=== PATIENT | female | born 1980 | race Caucasian/White ===

== ENCOUNTER 2017-08-01 16:02 | Inpatient (IN) | payer BC ==
[2017-08-01] MEDS ORDERED: Sodium Chloride 0.9% 10 ML Syringe FLUSH PRN (18:00)
[2017-08-01] MEDS: cefOXitin 2 GM in Premix Bag 1 BAG IV SCH (18:23)
[2017-08-01] MEDS: Doxycycline 100 MG in Sodium Chloride 0.9% 100 ML IV SCH (19:01)
[2017-08-01] MEDS: Ibuprofen 600 MG Tab PO PRN (19:55)
[2017-08-02] MEDS: cefOXitin 2 GM in Premix Bag 1 BAG IV SCH ×4 (00:21→18:26)
[2017-08-02] MEDS: Ibuprofen 600 MG Tab PO PRN ×3 (04:01→19:11)
[2017-08-02] MEDS: Doxycycline 100 MG in Sodium Chloride 0.9% 100 ML IV SCH ×2 (06:51→19:05)
[2017-08-03] MEDS: cefOXitin 2 GM in Premix Bag 1 BAG IV SCH ×4 (00:09→18:23)
[2017-08-03] MEDS: Doxycycline 100 MG in Sodium Chloride 0.9% 100 ML IV SCH ×2 (06:39→18:58)
[2017-08-03] MEDS: Ibuprofen 600 MG Tab PO PRN (06:43)
[2017-08-03] MEDS: Sodium Chloride 0.9% 500 ML ONE ×2 (07:18→19:01)
[2017-08-03] MEDS ORDERED: Sodium Chloride 0.9% 500 ML IV ONE (08:00)
--- NOTE | 2017-08-03 09:30 | PCM.PN ---
- General Info Date of Service: 08/03/17 Functional Status: Reports: Pain Controlled, Tolerating Diet - Review of Systems General: Reports: No Symptoms. Denies: Fever, Chills HEENT: Reports: No Symptoms Pulmonary: Reports: No Symptoms Cardiovascular: Reports: No Symptoms Gastrointestinal: Reports: No Symptoms Genitourinary: Reports: No Symptoms Musculoskeletal: Reports: No Symptoms Skin: Reports: No Symptoms Neurological: Reports: No Symptoms Psychiatric: Reports: No Symptoms - Patient Data Vitals - Most Recent: Last Vital Signs Temp 36.7 C 08/03/17 07:24 Pulse 64 08/03/17 07:24 Resp 18 08/03/17 07:24 BP 104/59 L 08/03/17 07:24 Pulse Ox 99 08/03/17 07:24 Weight - Most Recent: 62.142 kg I&O - Last 24 Hours: Intake & Output 08/02/17 08/03/17 08/03/17 22:59 06:59 14:59 Intake Total 900 Balance 900 Med Orders - Current: Current Medications Cefoxitin Sodium 2 gm/ Premix 50 mls @ 100 mls/hr IV Q6H [facility] Last Admin: 08/03/17 06:03 Dose: 100 mls/hr Doxycycline Hyclate 100 mg/ (Sodium Chloride) 100 mls @ 100 mls/hr IV Q12H [facility] Last Admin: 08/03/17 06:39 Dose: 100 mls/hr Ibuprofen (Motrin) 600 mg PO Q6H PRN PRN Reason: Pain Last Admin: 08/03/17 06:43 Dose: 600 mg Sodium Chloride (Saline Flush) 10 ml FLUSH ASDIRECTED PRN PRN Reason: Keep Vein Open Discontinued Medications Sodium Chloride (Normal Saline) Confirm Administered Dose 500 mls @ as directed .ROUTE .STK-MED ONE Stop: 08/03/17 07:10 - Exam General: Alert, Oriented HEENT: Pupils Equal, Pupils Reactive, EOMI, Mucous Membr. Moist/[place] Neck: Supple Lungs: Clear to Auscultation, Normal Respiratory Effort Cardiovascular: Regular Rate, Regular Rhythm GI/Abdominal Exam: Normal Bowel Sounds, Soft, Non-Tender, No Organomegaly Back Exam: Normal Inspection, Full Range of Motion Extremities: Normal Inspection, Normal Range of Motion, Non-Tender, No Pedal Edema, Normal Capillary Refill Skin: Warm, Dry, Intact Wound/Incisions: Healing Well Neurological: No New Focal Deficit Psy/Mental Status: Alert, Normal Affect, Normal Mood - Problem List Review Problem List Initiated/Reviewed/Updated: Yes - My Orders Last 24 Hours: My Active Orders 08/04/17 05:11 CBC WITH AUTO DIFF [HEME] AM - Assessment Assessment:: Doing well. Pain controlled. Improving Afebrile. - Plan Plan:: Hospital day two of antibiotics for TOA. Doing well.
[2017-08-03] MEDS ORDERED: Sodium Chloride 0.9% 500 ML ONE (18:52)
[2017-08-04] MEDS: cefOXitin 2 GM in Premix Bag 1 BAG IV SCH ×4 (00:41→18:16)
[2017-08-04] MEDS: Doxycycline 100 MG in Sodium Chloride 0.9% 100 ML IV SCH ×2 (06:51→18:29)
[2017-08-04] MEDS: Ibuprofen 600 MG Tab PO PRN (06:56)
--- NOTE | 2017-08-04 09:40 | PCM.DCSUM1 ---
Discharge Summary - Discharge Data Discharge Date: 08/04/17 Discharge Disposition: Home, Self-Care 01 Condition: Good - Patient Instructions Diet: Regular Diet as Tolerated Diet, Other: push fluids Activity: No Strenuous Activities Activity, Other: pelvic rest Driving: May Drive Today Showering/Bathing: September Shower Notify Provider of: Fever, Increased Pain, Swelling and Redness, Drainage, Nausea and/or Vomiting - Discharge Plan Referrals: Ifrah Coon MD [Physician] - (1 week) - Discharge Summary/Plan Comment DC Time >30 min.: No - General Info Date of Service: 08/04/17 - Review of Systems General: Reports: No Symptoms HEENT: Reports: No Symptoms Pulmonary: Reports: No Symptoms Cardiovascular: Reports: No Symptoms Gastrointestinal: Reports: No Symptoms Genitourinary: Reports: No Symptoms Musculoskeletal: Reports: No Symptoms Skin: Reports: No Symptoms Neurological: Reports: No Symptoms Psychiatric: Reports: No Symptoms - Patient Data Vitals - Most Recent: Last Vital Signs Temp 36.7 C 08/04/17 04:00 Pulse 75 08/03/17 19:56 Resp 16 08/03/17 19:56 BP 129/79 08/03/17 19:56 Pulse Ox 99 08/03/17 19:56 Weight - Most Recent: 62.142 kg I&O - Last 24 hours: Intake & Output 08/03/17 08/04/17 08/04/17 22:59 06:59 14:59 Intake Total 340 100 Balance 340 100 Lab Results - Last 24 hrs: Laboratory Results - last 24 hr 08/03/17 08/04/17 Range/Units 10:00 06:49 WBC 10.57 H 10.64 H (3.98-10.04) K/mm3 RBC 4.64 4.46 (3.98-5.22) M/mm3 Hgb 13.7 13.1 (11.2-15.7) gm/L Hct 41.6 39.8 (34.1-44.9) % MCV 89.7 89.2 (79.4-94.8) fl MCH 29.5 29.4 (25.6-32.2) pg MCHC 32.9 32.9 (32.2-35.5) g/dl RDW Std Deviation 40.2 40.0 (36.4-46.3) fL Plt Count 488 H 464 H (182-369) K/mm3 MPV 9.5 9.5 (9.4-12.3) fl Neut % (Auto) 54.4 49.4 (34.0-71.1) % Lymph % (Auto) 34.8 38.1 (19.3-51.7) % [place] % (Auto) 6.2 7.8 (4.7-12.5) % Eos % (Auto) 4.1 3.9 (0.7-5.8) Baso % (Auto) 0.4 0.6 (0.1-1.2) % Neut # (Auto) 5.75 5.26 (1.56-6.13) K/mm3 Lymph # (Auto) 3.68 4.05 H (1.18-3.74) K/mm3 [place] # (Auto) 0.66 H 0.83 H (0.24-0.36) K/mm3 Eos # (Auto) 0.43 H 0.42 H (0.04-0.36) K/mm3 Baso # (Auto) 0.04 0.06 (0.01-0.08) K/mm3 Med Orders - Current: Current Medications Cefoxitin Sodium 2 gm/ Premix 50 mls @ 100 mls/hr IV Q6H [facility] Last Admin: 08/04/17 06:26 Dose: 100 mls/hr Doxycycline Hyclate 100 mg/ (Sodium Chloride) 100 mls @ 100 mls/hr IV Q12H [facility] Last Admin: 08/04/17 06:51 Dose: 100 mls/hr Ibuprofen (Motrin) 600 mg PO Q6H PRN PRN Reason: Pain Last Admin: 08/04/17 06:56 Dose: 600 mg Sodium Chloride (Saline Flush) 10 ml FLUSH ASDIRECTED PRN PRN Reason: Keep Vein Open Discontinued Medications Sodium Chloride (Normal Saline) Confirm Administered Dose 500 mls @ as directed .ROUTE .STK-MED ONE Stop: 08/03/17 07:10 Last Admin: 08/03/17 19:01 Dose: 100 mls/hr Sodium Chloride (Normal Saline) 500 mls @ 100 mls/hr IV ASDIRECTED ONE Stop: 08/03/17 12:59 Last Admin: 08/03/17 19:01 Dose: 100 mls/hr Sodium Chloride (Normal Saline) Confirm Administered Dose 500 mls @ as directed .ROUTE .STK-MED ONE Stop: 08/03/17 18:53 Last Admin: 08/03/17 19:00 Dose: 100 mls/hr - Exam General: Reports: Alert, Oriented HEENT: Reports: Pupils Equal, Pupils Reactive, EOMI, Mucous Membr. Moist/[place] Neck: Reports: Supple Lungs: Reports: Clear to Auscultation, Normal Respiratory Effort Cardiovascular: Reports: Regular Rate, Regular Rhythm GI/Abdominal Exam: Normal Bowel Sounds, Soft, Non-Tender, No Organomegaly, No Distention, No Abnormal Bruit, No Mass, Pelvis Stable Rectal (Female) Exam: Normal Exam, Normal Rectal Tone Back Exam: Reports: Normal Inspection, Full Range of Motion Extremities: Normal Inspection, Normal Range of Motion, Non-Tender, No Pedal Edema, Normal Capillary Refill Skin: Reports: Warm, Dry, Intact Wound/Incisions: Reports: Healing Well Neurological: Reports: No New Focal Deficit Psy/Mental Status: Reports: Alert, Normal Affect, Normal Mood
[2017-08-04] MEDS ORDERED: Doxycycline 100 MG Cap PO STA (18:36)
[2017-08-04] MEDS ORDERED: cefTRIAXone 250 MG Vial IM ONE (19:00)
== END 2017-08-04 18:50 | disposition home or self-care (01) | DRG 531 ==
LOC: JD.OB 16:44
PROVIDERS: ADMIT Obstetrics & Gynecology; ATTEND Obstetrics & Gynecology
DX: N70.93 Salpingitis and oophoritis, unspecified (principal); J30.2 Other seasonal allergic rhinitis
CPT/HCPCS: 36415; 85025; A9270-GY; J0694; J0696; J7030; J7040

== ENCOUNTER 2019-01-15 19:46 | Emergency (ER) | payer BC, OTHER ==
[2019-01-15] MEDS ORDERED: Labetalol 100 MG/20 ML MDV IVPUSH ONE (20:41)
[2019-01-15] MEDS ORDERED: Sodium Chloride 0.9% 1,000 ML IV SCH (20:45)
--- NOTE | 2019-01-15 21:12 | EDM.PDOC ---
ED HPI GENERAL MEDICAL PROBLEM - General Chief Complaint: Cardiovascular Problem Stated Complaint: high blood presure Time Seen by Provider: 01/15/19 20:25 Source of Information: Reports: Patient, Family History Limitations: Reports: Intoxication - History of Present Illness INITIAL COMMENTS - FREE TEXT/NARRATIVE: This is a 38-year-old female. She has been having periodic headaches for more than a year and over the last 6-8 months chest tightness and left arm numbness at times. She says it usually occurs when she gets stressed out and if she'll just go to sleep and relax most of the symptoms go away. She says a someone massages her neck that usually makes her headaches go away. Apparently she tells me she gets stressed out easily. Yesterday evening she was feeling very tired she felt like the room was spinning it was in the evening so she lay down she noted that her left arm and hand felt numb was having chest pressure as well as a headache in the back of her head and on the sides of her head. She had a difficult time falling asleep but once she fell asleep she slept all night and when she awoke she did not have the symptoms. Then today he had several episodes of spinning or dizziness. Then this evening she went to a pharmacy and they checked her blood pressure and it was 159/98. At that time she was having some numbness in her left arm and pressure in her chest and also a posterior headache and it has lasted until she got to the ER. When she arrived her blood pressure was 170/105. She says she still has the chest pressure but her left arm is not hurting she still has a mild posterior headache. She says she has a family history of heart disease including an aunt on heart medications and a mother on blood pressure medicines. the patient also indicates that she has been easily stressed lately and that at a drop of a hat she'll cry and she gets very angry at times. Left Arm Pain Score (Numeric/FACES): 4 Chest Pain Score (Numeric/FACES): 4 - Related Data Allergies Allergy/AdvReac Type Severity Reaction Status Date / Time No Known Allergies Allergy Verified 07/27/17 08:44 Home Meds: Home Meds LORazepam [Ativan] 0.5 mg PO Q6H PRN #20 tablet 01/15/19 [Rx] Metoprolol Succinate 50 mg PO QAM #30 tab.er.24h 01/15/19 [Rx] Past Medical History HEENT History: Reports: Other (See Below) Other HEENT History: glasses PROCESS SPECIALIST History: Reports: Other (See Below) Other PROCESS SPECIALIST History: ovarian cyst - Past Surgical History GI Surgical History: Reports: Appendectomy Social & Family History - Family History Family Medical History: Noncontributory - Tobacco Use Smoking Status *Q: Current Every Day Smoker Years of Tobacco use: 3 Packs/Tins Daily: 0.3 - Caffeine Use Caffeine Use: Reports: Coffee, Soda - Recreational Drug Use Recreational Drug Use: No ED ROS GENERAL - Review of Systems Review Of Systems: See Below Constitutional: Denies: Fever, Chills HEENT: Reports: No Symptoms Respiratory: Denies: Shortness of Breath, Wheezing, Cough Cardiovascular: Reports: Chest Pain, Other (Vertigo). Denies: Edema Endocrine: Reports: No Symptoms GI/Abdominal: Reports: No Symptoms : Reports: No Symptoms Musculoskeletal: Denies: Neck Pain, Back Pain Skin: Reports: No Symptoms Neurological: Reports: Dizziness, Headache. Denies: Syncope, Trouble Speaking, Difficulty Walking Psychiatric: Reports: Anxiety, Depression Hematologic/Lymphatic: Reports: No Symptoms ED EXAM, GENERAL - Physical Exam Exam: See Below Exam Limited By: No Limitations General Appearance: Alert, WD/WN, No Apparent Distress Eye Exam: Bilateral Eye: Normal Inspection Ears: Normal External Exam, Normal Canal, Normal TMs Nose: Normal Inspection Throat/Mouth: Normal Inspection, Normal Lips, Normal Voice, No Airway Compromise Head: Atraumatic, Normocephalic Neck: Supple, Other (She is tender in the posterior neck and paraspinal muscle and when I push on the muscles there she says it feels better) Respiratory/Chest: No Respiratory Distress, Lungs Clear, Normal Breath Sounds Cardiovascular: Regular Rate, Rhythm, No Murmur GI/Abdominal: Soft, Non-Tender Back Exam: Full Range of Motion Extremities: Normal Inspection, Normal Range of Motion Neurological: Alert, Oriented, Normal Cognition, No Motor/Sensory Deficits Psychiatric: Flat Affect Skin Exam: Warm, Dry EKG INTERPRETATION EKG Date: 01/15/19 Time: 20:10 EKG Interpretation Comments: Normal sinus rhythm no acute ST or T-wave changes and no ischemia noted. Course - Vital Signs Last Recorded V/S: Last Vital Signs Temp 97.9 F 01/15/19 19:53 Pulse 92 01/15/19 19:53 Resp 20 01/15/19 19:53 BP 170/105 H 01/15/19 19:53 Pulse Ox 98 01/15/19 19:53 - Orders/Labs/Meds Orders: Active Orders 24 hr Category Date Time Status EKG Documentation Completion [RC] ASDIRECTED Care 01/15/19 20:04 Active Chest 2V [CR] Stat Exams 01/15/19 20:40 Taken Head wo Cont [CT] Stat Exams 01/15/19 20:41 Taken Sodium Chloride 0.9% [Normal Saline] 1,000 ml Med 01/15/19 20:45 Active IV ASDIRECTED EKG 12 Lead [EK] Stat Ther 01/15/19 20:03 Ordered Medication Orders Sodium Chloride (Normal Saline) 1,000 mls @ 1,000 mls/hr IV ASDIRECTED [facility] Last Admin: 01/15/19 21:02 Dose: 1,000 mls/hr Labs: Laboratory Tests 01/15/19 01/15/19 01/15/19 Range/Units 20:57 20:57 22:55 WBC 10.91 H (3.98-10.04) K/mm3 RBC 4.91 (3.98-5.22) M/mm3 Hgb 14.9 D (11.2-15.7) gm/L Hct 44.5 (34.1-44.9) % MCV 90.6 (79.4-94.8) fl MCH 30.3 (25.6-32.2) pg MCHC 33.5 (32.2-35.5) g/dl RDW Std Deviation 41.6 (36.4-46.3) fL Plt Count 320 D (182-369) K/mm3 MPV 9.7 (9.4-12.3) fl Neut % (Auto) 44.2 (34.0-71.1) % Lymph % (Auto) 41.1 (19.3-51.7) % [place] % (Auto) 8.7 (4.7-12.5) % Eos % (Auto) 5.3 (0.7-5.8) Baso % (Auto) 0.4 (0.1-1.2) % Neut # (Auto) 4.83 (1.56-6.13) K/mm3 Lymph # (Auto) 4.48 H (1.18-3.74) K/mm3 [place] # (Auto) 0.95 H (0.24-0.36) K/mm3 Eos # (Auto) 0.58 H (0.04-0.36) K/mm3 Baso # (Auto) 0.04 (0.01-0.08) K/mm3 Manual Slide Review Normal smear Sodium 138 (136-145) mEq/L Potassium 3.9 (3.5-5.1) mEq/L Chloride 105 (98-107) mEq/L Carbon Dioxide 25 (21-32) mEq/L Anion Gap 11.9 (5-15) BUN 16 (7-18) mg/dL Creatinine 0.7 (0.55-1.02) mg/dL Est Cr Clr Drug Dosing 87.03 mL/min Estimated GFR (MDRD) > 60 (>60) mL/min BUN/Creatinine Ratio 22.9 H (14-18) Glucose 103 (74-106) mg/dL Calcium 9.0 (8.5-10.1) mg/dL Total Bilirubin 0.1 L (0.2-1.0) mg/dL AST 9 L (15-37) U/L ALT 23 (14-59) U/L Alkaline Phosphatase 100 (46-116) U/L Troponin I < 0.017 < 0.017 (0.00-0.056) ng/mL Total Protein 7.6 (6.4-8.2) g/dl Albumin 4.0 (3.4-5.0) g/dl Globulin 3.6 gm/dL Albumin/Globulin Ratio 1.1 (1-2) Meds: Medications Generic Name Dose Route Start Last Admin Trade Name Freq PRN Reason Stop Dose Admin Sodium Chloride 1,000 mls @ 1,000 mls/hr 01/15/19 20:45 01/15/19 21:02 Normal Saline IV 1,000 mls/hr ASDIRECTED [facility] Administration Discontinued Medications Generic Name Dose Route Start Last Admin Trade Name Freq PRN Reason Stop Dose Admin Labetalol HCl 20 mg 01/15/19 20:41 01/15/19 20:59 Normodyne IVPUSH 01/15/19 20:42 10 mg ONETIME ONE Administration Protocol - Radiology Interpretation Free Text/Narrative:: Chest x-ray does not show any acute changes. CT scan of the head does not show any acute intracranial process - Re-Assessments/Exams Free Text/Narrative Re-Assessment/Exam: 01/15/19 22:13 I spoke to the patient regarding the chest x-ray and the lab work. Her EKG was normal. Her heart enzymes were normal however I cautioned her that she needs to have control of her blood pressure and she needs to follow-up with the family doctor regarding this chest pressure and arm pain since it could still be her heart though she has not had a heart attack. 01/15/19 22:40 I spoke to the patient regarding the CT scan results. 01/15/19 23:40 I spoke to the patient she states she feels a lot better. Her headache is gone now that her blood pressures down she has a little tightness in her chest but her arm feels actually normal again. I spoke to her at length about following up with her family doctor because she needs to have a treadmill stress test to make actually certain her heart is okay. In the meantime, put her on some medication for her blood pressure as well as give her some medicine she can take immediately when she gets stressed out to help control it. But that does not take the place of seeing her family doctor and being worked up and if things worsen before she sees her family doctor she needs to return to the ER. The patient understands. Departure - Departure Time of Disposition: 23:43 Disposition: Home, Self-Care 01 Condition: Fair Clinical Impression: Elevated blood pressure reading, Feeling stressed out Anxiety disorder Qualifiers: Anxiety disorder type: generalized anxiety disorder Qualified Code(s): F41.1 - Generalized anxiety disorder Chest pain Qualifiers: Chest pain type: unspecified Qualified Code(s): R07.9 - Chest pain, unspecified Headache Qualifiers: Headache type: other headache syndrome Qualified Code(s): G44.89 - Other headache syndrome Prescriptions: LORazepam [Ativan] 0.5 mg PO Q6H PRN #20 tablet PRN Reason: Anxiety Metoprolol Succinate 50 mg PO QAM #30 tab.er.24h Referrals: Cheyanne Martin MD [Primary Care Provider] - Forms: ED Department Discharge Additional Instructions: If the prescriptions filled tomorrow, take the metoprolol every morning faithfully for your blood pressure, use the Ativan when you needed when you feeling stressed out to help calm you down and keep her blood pressure down and you don't develop the headache or the chest pain, you need to follow up with your family doctor this week for recheck and possibly cardiac workup such as a stress test to make certain your heart is absolutely okay, if your symptoms worsen and are not controlled by the medications or you haven't seen your family doctor return to the ER - My Orders Last 24 Hours: My Active Orders 01/15/19 20:03 EKG 12 Lead [EK] Stat 01/15/19 20:04 EKG Documentation Completion [RC] ASDIRECTED 01/15/19 20:40 Chest 2V [CR] Stat 01/15/19 20:41 Head wo Cont [CT] Stat 01/15/19 20:45 Sodium Chloride 0.9% [Normal Saline] 1,000 ml IV ASDIRECTED - Assessment/Plan Last 24 Hours: My Active Orders 01/15/19 20:03 EKG 12 Lead [EK] Stat 01/15/19 20:04 EKG Documentation Completion [RC] ASDIRECTED 01/15/19 20:40 Chest 2V [CR] Stat 01/15/19 20:41 Head wo Cont [CT] Stat 01/15/19 20:45 Sodium Chloride 0.9% [Normal Saline] 1,000 ml IV ASDIRECTED
--- NOTE | 2019-01-18 15:34 | CR ---
Chest: Two views of the chest are obtained. Comparison: No previous chest imaging. Heart size and mediastinum are normal. Lungs are clear. Bony structures are unremarkable. Impression: 1. Nothing acute is seen on two-view chest x-ray. Diagnostic code #1
--- NOTE | 2019-01-19 09:43 | CT ---
Head CT Technique: Multiple axial sections through the brain were obtained. Intravenous contrast was not utilized. Comparison: No prior intracranial imaging is available. Findings: Ventricles along with basal cisterns and sulci over the convexities are within normal limits for the patient's age. No abnormal parenchymal densities are seen. No evidence of intracranial hemorrhage. No midline shift or mass effect is seen. Incidental calcification is seen off the interhemispheric falx. Bone window settings were reviewed which showed the visualized sinuses to contain a minimal amount of fluid within the sphenoid sinus which is likely due to retained secretions. Mastoid sinuses are clear. No acute calvarial abnormality is seen. Impression: 1. Minimal fluid within the sphenoid sinuses most likely due to retained secretions. 2. No acute intracranial abnormality is appreciated. Diagnostic code #2 I agree with preliminary report from [facility], finalized on 01/15/19, 11:33 PM Central Time
== END 2019-01-15 23:57 | disposition home or self-care (01) ==
LOC: JD.ED 19:46
DX: G44.89 Other headache syndrome (principal); F41.1 Generalized anxiety disorder; R07.9 Chest pain, unspecified; R03.0 Elevated blood-pressure reading, without diagnosis of hypertension; F43.9 Reaction to severe stress, unspecified; F17.210 Nicotine dependence, cigarettes, uncomplicated
CPT/HCPCS: 36415; 70450; 71046; 80053; 84484; 85025; 93005; 96361; 96374; 99285; J3490; J7040

== ENCOUNTER 2020-12-24 14:01 | Emergency (ER) | payer OTHER ==
--- NOTE | 2020-12-24 14:45 | EDM.PDOC ---
ED HPI GENERAL MEDICAL PROBLEM - General Chief Complaint: Flank Pain Stated Complaint: COVID + HAVING KIDNEY PAIN Time Seen by Provider: 12/24/20 14:44 - History of Present Illness INITIAL COMMENTS - FREE TEXT/NARRATIVE: 40-year-old female presents the emergency room with flank pain. Patient believes she is Covid positive she had a positive home test. She complains of several issues she has urinary frequency and some dysuria. She also complains of rectal irritation and itching. She is not having any significant breathing difficulties shortness of breath mild cough but it is not the Covid the brought her in, it is the urinary problems she is having. She not aware of any fevers or chills. She is really not having any significant abdominal discomfort but does wonder about a kidney stone. Her regular healthcare provider has told her that the rectal itching she is having is because she is cleaning down there too much. Bilateral Flank Pain Score (Numeric/FACES): 8 - Related Data Allergies Allergy/AdvReac Type Severity Reaction Status Date / Time No Known Allergies Allergy Verified 12/24/20 14:35 Past Medical History HEENT History: Reports: Other (See Below) Other HEENT History: glasses SEAMER History: Reports: Other (See Below) Other SEAMER History: ovarian cyst - Past Surgical History GI Surgical History: Reports: Appendectomy Social & Family History - Family History Family Medical History: No Pertinent Family History - Tobacco Use Tobacco Use Status *Q: Current Some Day Tobacco User Years of Tobacco use: 1 Packs/Tins Daily: 0.2 - Caffeine Use Caffeine Use: Reports: None - Recreational Drug Use Recreational Drug Use: No ED ROS GENERAL - Review of Systems Review Of Systems: See Below Constitutional: Reports: No Symptoms HEENT: Reports: No Symptoms Respiratory: Reports: Cough (Mild) Cardiovascular: Reports: No Symptoms Endocrine: Reports: No Symptoms GI/Abdominal: Reports: No Symptoms : Reports: Dysuria, Frequency. Denies: Hematuria, Incontinence Musculoskeletal: Reports: No Symptoms Skin: Reports: No Symptoms Neurological: Reports: No Symptoms Psychiatric: Reports: No Symptoms Hematologic/Lymphatic: Reports: No Symptoms ED EXAM, GENERAL - Physical Exam Exam: See Below Exam Limited By: No Limitations General Appearance: Alert, No Apparent Distress Head: Atraumatic, Normocephalic Respiratory/Chest: No Respiratory Distress, Lungs Clear, Normal Breath Sounds Cardiovascular: Regular Rate, Rhythm, No Edema, No Murmur GI/Abdominal: Normal Bowel Sounds, Soft, Non-Tender Rectal (Female) Exam: Other (Patient declined rectal exam) Back Exam: Normal Inspection, CVA Tenderness (R) (This seems more like a muscle tightness). No: CVA Tenderness (L) Extremities: Normal Inspection, No Pedal Edema Neurological: Alert, Oriented, Normal Cognition Course - Vital Signs Last Recorded V/S: Last Vital Signs Temp 37.1 C 12/24/20 14:29 Pulse 89 12/24/20 14:29 Resp 16 12/24/20 14:29 BP 168/88 H 12/24/20 14:29 Pulse Ox 99 12/24/20 14:29 - Orders/Labs/Meds Labs: Laboratory Tests 12/24/20 12/24/20 12/24/20 Range/Units 15:15 15:15 15:35 WBC (3.98-10.04) K/mm3 RBC (3.98-5.22) M/mm3 Hgb (11.2-15.7) gm/dl Hct (34.1-44.9) % MCV (79.4-94.8) fl MCH (25.6-32.2) pg MCHC (32.2-35.5) g/dl RDW Std Deviation (36.4-46.3) fL Plt Count (182-369) K/mm3 MPV (9.4-12.3) fl Neut % (Auto) (34.0-71.1) % Lymph % (Auto) (19.3-51.7) % [place] % (Auto) (4.7-12.5) % Eos % (Auto) (0.7-5.8) Baso % (Auto) (0.1-1.2) % Neut # (Auto) (1.56-6.13) K/mm3 Lymph # (Auto) (1.18-3.74) K/mm3 [place] # (Auto) (0.24-0.36) K/mm3 Eos # (Auto) (0.04-0.36) K/mm3 Baso # (Auto) (0.01-0.08) K/mm3 Sodium (136-145) mEq/L Potassium (3.5-5.1) mEq/L Chloride (98-107) mEq/L Carbon Dioxide (21-32) mEq/L Anion Gap (5-15) BUN (7-18) mg/dL Creatinine (0.55-1.02) mg/dL Est Cr Clr Drug Dosing mL/min Estimated GFR (MDRD) (>60) mL/min BUN/Creatinine Ratio (14-18) Glucose (70-99) mg/dL Calcium (8.5-10.1) mg/dL Total Bilirubin (0.2-1.0) mg/dL AST (15-37) U/L ALT (14-59) U/L Alkaline Phosphatase (46-116) U/L Total Protein (6.4-8.2) g/dl Albumin (3.4-5.0) g/dl Globulin gm/dL Albumin/Globulin Ratio (1-2) Urine Color Yellow (Yellow) Urine Appearance Clear (Clear) Urine pH 6.5 (5.0-8.0) Ur Specific Leiter 1.015 (1.005-1.030) Urine Protein Negative (Negative) Urine Glucose (UA) Negative (Negative) Urine Ketones Negative (Negative) Urine Occult Blood Trace-intact H (Negative) Urine Nitrite Negative (Negative) Urine Bilirubin Negative (Negative) Urine Urobilinogen 0.2 (0.2-1.0) Ur Leukocyte Esterase Negative (Negative) Urine RBC 0-5 (0-5) /hpf Urine WBC 0-5 (0-5) /hpf Ur Squamous Epith Cells 0-5 (0-5) /hpf Urine Bacteria Moderate H (FEW) /hpf Urine Mucus Not seen (FEW) /hpf Urine HCG, Qual Negative (NEGATIVE) SARS-CoV-2 RNA (ELMA) Positive H (NEGATIVE) 12/24/20 12/24/20 Range/Units 16:10 16:10 WBC 6.26 (3.98-10.04) K/mm3 RBC 4.87 (3.98-5.22) M/mm3 Hgb 15.1 (11.2-15.7) gm/dl Hct 45.5 H (34.1-44.9) % MCV 93.4 (79.4-94.8) fl MCH 31.0 (25.6-32.2) pg MCHC 33.2 (32.2-35.5) g/dl RDW Std Deviation 41.8 (36.4-46.3) fL Plt Count 225 D (182-369) K/mm3 MPV 9.8 (9.4-12.3) fl Neut % (Auto) 61.6 (34.0-71.1) % Lymph % (Auto) 24.0 (19.3-51.7) % [place] % (Auto) 12.5 (4.7-12.5) % Eos % (Auto) 1.4 (0.7-5.8) Baso % (Auto) 0.3 (0.1-1.2) % Neut # (Auto) 3.86 (1.56-6.13) K/mm3 Lymph # (Auto) 1.50 (1.18-3.74) K/mm3 [place] # (Auto) 0.78 H (0.24-0.36) K/mm3 Eos # (Auto) 0.09 (0.04-0.36) K/mm3 Baso # (Auto) 0.02 (0.01-0.08) K/mm3 Sodium 137 (136-145) mEq/L Potassium 4.1 (3.5-5.1) mEq/L Chloride 101 (98-107) mEq/L Carbon Dioxide 27 (21-32) mEq/L Anion Gap 13.1 (5-15) BUN 11 (7-18) mg/dL Creatinine 0.7 (0.55-1.02) mg/dL Est Cr Clr Drug Dosing 85.34 mL/min Estimated GFR (MDRD) > 60 (>60) mL/min BUN/Creatinine Ratio 15.7 (14-18) Glucose 93 (70-99) mg/dL Calcium 8.5 (8.5-10.1) mg/dL Total Bilirubin 0.2 (0.2-1.0) mg/dL AST 22 (15-37) U/L ALT 40 (14-59) U/L Alkaline Phosphatase 64 (46-116) U/L Total Protein 7.5 (6.4-8.2) g/dl Albumin 3.9 (3.4-5.0) g/dl Globulin 3.6 gm/dL Albumin/Globulin Ratio 1.1 (1-2) Urine Color (Yellow) Urine Appearance (Clear) Urine pH (5.0-8.0) Ur Specific Leiter (1.005-1.030) Urine Protein (Negative) Urine Glucose (UA) (Negative) Urine Ketones (Negative) Urine Occult Blood (Negative) Urine Nitrite (Negative) Urine Bilirubin (Negative) Urine Urobilinogen (0.2-1.0) Ur Leukocyte Esterase (Negative) Urine RBC (0-5) /hpf Urine WBC (0-5) /hpf Ur Squamous Epith Cells (0-5) /hpf Urine Bacteria (FEW) /hpf Urine Mucus (FEW) /hpf Urine HCG, Qual (NEGATIVE) SARS-CoV-2 RNA (ELMA) (NEGATIVE) - Re-Assessments/Exams Free Text/Narrative Re-Assessment/Exam: 12/24/20 18:37 Patient had some small amount of blood in her urine after discussion with her initial lab work and confirmatory Covid we decided to pursue a CT KUB this showed multiple small stones in both kidneys without stones in the ureters. No obstructing stones. I did explain the finding on the CT to the patient she understands. We discussed multiple pain treatment options and the patient would just like to use Tylenol at this point which I think is reasonable. Departure - Departure Time of Disposition: 18:37 Disposition: Home, Self-Care 01 Clinical Impression: Back pain, COVID-19 - Discharge Information Referrals: Cheyanne Martin MD [Primary Care Provider] - Forms: ED Department Discharge Additional Instructions: Return to the emergency room with any questions problems or concerning symptoms. After your isolation With the Covid in 10 to 12 days, follow-up with your regular healthcare provider to have follow-up for your itchy condition near your rectum. Tylenol as needed for back pain as we discussed yes you have some kidney stones but they are not causing problems for you at this time. Sepsis Event Note (ED) - Evaluation Sepsis Screening Result: No Definite Risk - Focused Exam Vital Signs: Vital Signs Temp Pulse Resp BP Pulse Ox 12/24/20 14:29 37.1 C 89 16 168/88 H 99
--- NOTE | 2020-12-24 17:57 | CT ---
CT abdomen and pelvis Technique: Multiple axial sections were obtained from slightly below the dome of the diaphragm inferiorly through the pubic symphysis. Intravenous and oral contrast were not utilized. Reconstructed sagittal and coronal images were obtained. Findings: Multiple nonobstructing calculi are noted within both kidneys. Calculi measure less than 1 cm. No ureteral dilatation or ureteral calculi are seen. No bladder calculi are noted. Visualized lung bases show nothing acute. Noncontrast appearance of the liver shows no focal abnormality. Spleen size is normal. Adrenal glands show a nodule on the left side measuring 1.1 cm which is most likely due to a small benign adenoma. Spleen appears within normal limits. Gallbladder contains no calcified gallstones. Abdominal aorta shows atherosclerotic calcification with no aneurysm. No retroperitoneal adenopathy or mesenteric abnormalities are seen. No pelvic mass or adenopathy is identified. Appendix is not definitely visualized. No free fluid or inflammatory change is appreciated. Minimal increased stool is seen within the colon. Bone window settings were reviewed. Mild degenerative change is seen within both sacroiliac joints. No acute osseous finding is seen. Impression: 1. Multiple small nonobstructing calculi within both kidneys. No ureteral dilatation or ureteral stone is seen. 2. Small adrenal adenoma believed to be present within the left adrenal gland. 3. Slight degenerative change within the sacroiliac joints. Minimal increased stool within the colon is noted. 4. Nothing acute is otherwise seen on noncontrast CT study of the abdomen and pelvis. Diagnostic code #3
== END 2020-12-24 19:02 | disposition home or self-care (01) ==
LOC: JD.ED 14:01
DX: U07.1 COVID-19 (principal); M54.5 Low back pain; Z72.0 Tobacco use
CPT/HCPCS: 36415; 74176; 74176-26; 80053; 81001; 81025; 85025; 99283; 99284-25; U0002

== ENCOUNTER 2021-01-22 19:32 | Emergency (ER) | payer OTHER | END 2021-01-22 20:00 | disposition left against medical advice (07) | LOC: JD.ED 19:32 | DX: Z53.21 Procedure and treatment not carried out due to patient leaving prior to being seen by health care provider (principal) ==

== ENCOUNTER 2021-12-05 09:16 | Emergency (ER) | payer OTHER ==
[2021-12-05 12:10] LABS: ESTIMATED GFR 95 mL/min (>60)
[2021-12-05] MEDS ORDERED: Magnesium Oxide 400 MG Tab PO ONE (13:01)
== END 2021-12-05 13:59 | disposition home or self-care (01) ==
LOC: JD.ED 09:16
DX: I10 Essential (primary) hypertension (principal); Z79.899 Other long term (current) drug therapy; Z86.16 Personal history of COVID-19
CPT/HCPCS: 36415; 71045; 80053; 83735; 84484; 85025; 85379; 93005; 99285; A9270

== ENCOUNTER 2023-01-25 04:13 | Emergency (ER) | payer OTHER ==
[2023-01-25 04:49] LABS: APPEARANCE,URINE SLT CLOUDY (Clear); BILIRUBIN,URINE NEGATIVE (Negative); COLOR,URINE YELLOW (Yellow); GLUCOSE,URINE NEGATIVE (Negative); KETONES,URINE NEGATIVE (Negative); LEUKOCYTE ESTERASE,URINE NEGATIVE (Negative); NITRITE,URINE NEGATIVE (Negative); OCCULT BLOOD,URINE 2+ (Negative); PH,URINE 5.5 (5.0-8.0); PROTEIN,URINE NEGATIVE (Negative); UROBILINOGEN,URINE 0.2 (0.2-1.0)
[2023-01-25] MEDS ORDERED: Ondansetron 4 MG/2 ML SDV IVPUSH ONE (04:58)
[2023-01-25] MEDS ORDERED: Ketorolac 30 MG/ML SDV IVPUSH ONE (04:58)
[2023-01-25 04:59] LABS: BACTERIA,URINE FEW /hpf (FEW); MUCUS,URINE FEW /hpf (FEW); RBC,URINE 20-30 /hpf (0-5); WBC,URINE 0-5 /hpf (0-5)
[2023-01-25] MEDS ORDERED: Tamsulosin 0.4 MG Cap.ER PO ONE (05:50)
== END 2023-01-25 06:08 | disposition home or self-care (01) ==
LOC: JD.ED 04:13
DX: N20.1 Calculus of ureter (principal); I10 Essential (primary) hypertension; Z86.16 Personal history of COVID-19; Z79.899 Other long term (current) drug therapy
CPT/HCPCS: 74176; 81001; 81025; 96374; 96375; 99284; A9270; J1885; J2405

== ENCOUNTER 2023-09-24 09:18 | Emergency (ER) | payer OTHER ==
[2023-09-24 10:10] LABS: BASOPHILS ABSOLUTE AUTO 0.1 K/mm3 (0.0-0.2); BASOPHILS PERCENT AUTO 0.9 % (0.0-1.0); EOSINOPHILS ABSOLUTE AUTO 0.4 K/mm3 (0.0-0.4); HEMATOCRIT 41.8 % (37.0-47.0); IMMATURE GRAN ABSOLUTE AUTO 0.03 K/mm3 (0.00-0.05); IMMATURE GRAN PERCENT AUTO 0.4 % (0.0-0.4); LYMPHOCYTES ABSOLUTE AUTO 3.5 K/mm3 (1.0-4.8); LYMPHOCYTES PERCENT AUTO 46.9 % (24.0-44.0); MEAN CORPUSCULAR HEMOGLOBIN 30.1 pg (28.0-32.0); MEAN CORPUSCULAR HGB CONC 33.5 g/dl (32.0-36.0); MEAN CORPUSCULAR VOLUME 89.9 fl (83.0-99.0); MEAN PLATELET VOLUME 9.5 fl (9.4-12.3); MONOCYTES ABSOLUTE AUTO 0.7 K/mm3 (0.0-0.8); MONOCYTES PERCENT AUTO 9.8 % (0.0-8.0); NEUTROPHILS ABSOLUTE AUTO 2.8 K/mm3 (1.8-7.7); PLATELET COUNT,PLT 331 K/mm3 (150-400); RED BLOOD CELL COUNT 4.65 M/mm3 (4.10-5.30); WHITE BLOOD CELL COUNT,WBC 7.47 K/mm3 (3.9-11.3)
[2023-09-24 10:22] LABS: ALANINE AMINOTRANSFERASE,ALT 36 U/L (14-59); ALBUMIN 3.6 g/dl (3.4-5.0); ALKALINE PHOSPHATASE 84 U/L (46-116); ANION GAP 14.3 (5-15); ASPARTATE AMNIOTRANSFERASE,AST 20 U/L (15-37); BILIRUBIN TOTAL 0.2 mg/dL (0.2-1.0); BLOOD UREA NITROGEN,BUN 15 mg/dL (7-18); BUN/CREATININE RATIO 21.4 (14-18); CALCIUM 9.2 mg/dL (8.5-10.1); CARBON DIOXIDE,CO2 24 mEq/L (21-32); CHLORIDE,CL 103 mEq/L (98-107); CREATININE 0.7 mg/dL (0.55-1.02); ESTIMATED GFR 111 mL/min (>60); GLUCOSE RANDOM 97 mg/dL (70-99); POTASSIUM,K 4.3 mEq/L (3.5-5.1); PROTEIN TOTAL,TP 7.3 g/dl (6.4-8.2); SODIUM,NA 137 mEq/L (136-145)
[2023-09-24 10:23] LABS: TROPONIN I HIGH SENSITIVITY < 4 pg/mL (<=51)
== END 2023-09-24 11:44 | disposition home or self-care (01) ==
LOC: JD.ED 09:18
DX: I11.9 Hypertensive heart disease without heart failure (principal); F17.210 Nicotine dependence, cigarettes, uncomplicated; Z79.899 Other long term (current) drug therapy; Z86.16 Personal history of COVID-19
CPT/HCPCS: 36415; 80053; 84484; 85025; 85379; 93005; 93010; 99284; 99285